=== PATIENT | male | born 1960 | race Caucasian/White ===

== ENCOUNTER 2024-08-01 10:37 | Emergency (ER) | payer MEDICARE, SELFPAY ==
[2024-08-01] MEDS ORDERED: predniSONE 20 MG TAB ONE (11:02)
[2024-08-01] MEDS ORDERED: Ipratropium/Albuterol 3 ML NEB ONE (11:02)
== END 2024-08-01 11:17 | disposition home or self-care (01) ==
LOC: NAV ERS 10:37
DX: T78.40XA Allergy, unspecified, initial encounter (principal); E78.00 Pure hypercholesterolemia, unspecified
CPT/HCPCS: J7512; J7620